=== PATIENT | female | born 1980 | race Caucasian/White ===

== ENCOUNTER 2017-11-27 08:08 | Day surgery (SDC) | payer BC, OTHER ==
[2017-11-25 11:09] VITALS: BMI 27.3
[~2017-11-27 08:08] MED LIST: LACTATED RINGERS 1,000 ML IV SCH
[2017-11-27 08:50] VITALS: RESP 16; TEMP 97.7
[2017-11-27] MEDS ORDERED: LIDOCAINE 1% 20 ML VIAL (10MG/ML) FOR IV START INTRADERMA ONE (08:54)
[2017-11-27] MEDS ORDERED: PROPOFOL 10 MG/ML 20 ML VIAL IV ONE (09:36)
[2017-11-27] MEDS ORDERED: MIDAZOLAM 2 MG/2 ML VIAL ONE (09:36)
[2017-11-27] MEDS ORDERED: fentaNYL (PF) 50 MCG/ML 2 ML AMP ONE (09:36)
--- NOTE | 2017-11-27 09:56 | P.GSHP ---
History of Present Illness H&P Date: 11/27/17 Chief Complaint: GERD This a 36-year-old female for from Dr. Caldera. Patient has complaints of GERD. She presents today for EGD. Past Medical History Past Medical History: No Reported History Additional Past Medical History / Comment(s): "Inflammation of stomach lining" History of Any Multi-Drug Resistant Organisms: None Reported Past Surgical History: Appendectomy, Cholecystectomy, Tubal Ligation Additional Past Surgical History / Comment(s): EGD'S Past Anesthesia/Blood Transfusion Reactions: No Reported Reaction Smoking Status: Former smoker - Past Family History Mother Family Medical History: No Reported History Medications and Allergies Home Medications Medication Instructions Recorded Confirmed Type Cholecalciferol [Vitamin D3] 4,000 unit PO DAILY 01/08/16 11/27/17 History Multivitamins, Thera [Multivitamin] 1 tab PO DAILY 01/08/16 11/27/17 History Calcium Carbonate [Tums] 500 mg PO QID PRN 11/25/17 11/27/17 History Cbd Oil PRN 11/25/17 History Ranitidine HCl [Zantac] 150 mg PO BID 11/25/17 11/27/17 History Allergies Allergy/AdvReac Type Severity Reaction Status Date / Time Penicillins Allergy Severe Anaphylaxis Verified 11/27/17 08:41 Surgical - Exam Vital Signs Temp Pulse Resp BP Pulse Ox 97.7 F 55 L 16 120/75 100 11/27/17 08:46 11/27/17 08:46 11/27/17 08:46 11/27/17 08:46 11/27/17 08:46 - General well developed, no distress - Eyes PERRL - ENT normal pinna - Neck no masses - Respiratory normal expansion - Cardiovascular Rhythm: regular - Abdomen Abdomen: soft, non tender Assessment and Plan Assessment: GERD. We'll perform EGD.
--- NOTE | 2017-11-27 10:06 | P.OP ---
Date of Procedure: 11/27/17 Preoperative Diagnosis: GERD Postoperative Diagnosis: Antral gastritis Hiatal hernia Mild esophagitis Anesthesia: MAC Surgeon: Paco Cueva Pathology: other (Antrum, esophagus) Condition: stable Disposition: PACU Description of Procedure: The patient's placed on the endoscopy table in the lateral position. She received IV sedation. The gastroscope placed oropharynx passed in the esophagus and stomach. Scope was then placed through the pylorus. The first and second portion of the duodenum appeared normal. Scope was then brought back the antrum appeared mildly inflamed. A biopsies performed. Scope was retroflexed and the remainder of the stomach appeared normal. The patient had a sliding hiatal hernia. The GE junction was at 38 cm the esophagus was minimal inflamed a biopsies performed. The proximal esophagus. Normal. Scope withdrawn for patient.
[2017-11-27 10:39] VITALS: BP 124/78; PULSE 53
== END 2017-11-27 10:50 | disposition home or self-care (01) ==
LOC: ORWHC2ENDO 08:08
PROVIDERS: ATTEND Surgery
DX: K29.50 Unspecified chronic gastritis without bleeding (principal); K44.9 Diaphragmatic hernia without obstruction or gangrene; K21.0 Gastro-esophageal reflux disease with esophagitis; Z79.899 Other long term (current) drug therapy; Z88.0 Allergy status to penicillin; Z90.49 Acquired absence of other specified parts of digestive tract; Z98.51 Tubal ligation status; Z87.891 Personal history of nicotine dependence
CPT/HCPCS: 81025; 88305; 43239; J2250; J3010; J2704

== ENCOUNTER → 2017-12-02 | Outpatient (CLI) | payer BC ==
--- NOTE | 2017-12-02 10:20 | FL ---
EXAMINATION: Cervical and Thoracic Esophagram DATE OF EXAM: 12/02/2017 CLINICAL INDICATION: 36-year-old female with GERD, feels like food stuck in the upper chest after eat ing for the last 2 weeks. Total fluoroscopy time: 48 seconds. Total images: 17 COMPARISON: None FINDINGS: The swallowing mechanism is normal and hypopharyngeal anatomy is preserved. The cervical and thoracic portions have a normal course and caliber and normal motility. The mucosa i s normal and no persistent filling defect is encountered. There is a small sliding hiatal hernia demonstrated. Mild gastroesophageal reflux is demonstrated when the patient is supine with Valsalva maneuver. IMPRESSION: 1. Small sliding hiatal hernia with mild gastroesophageal reflux. 2. Otherwise, no specific abnormality seen on esophagram. 3. Note that the patient is concerned about peptic ulcer disease and H. Pylori involving the stomach. This study only evaluated the esophagus and GE junction.
== END | disposition home or self-care (01) ==
LOC: RADFLWHC 07:59
PROVIDERS: ATTEND Surgery
DX: K21.9 Gastro-esophageal reflux disease without esophagitis (principal); K44.9 Diaphragmatic hernia without obstruction or gangrene
CPT/HCPCS: 74220

== ENCOUNTER → 2020-11-30 | Outpatient (CLI) | payer BC ==
[2020-11-30 23:33] LABS: Prolactin 10.4 ng/mL (2.8-29.2); T4, Free (Free Thyroxine) 1.2 ng/dL (0.80-1.80)
[2020-11-30 23:43] LABS: Thyroid Peroxidase Antibodies <28.0 U/mL (0.0-60.0)
== END | disposition home or self-care (01) ==
LOC: LABWHC1 10:53
PROVIDERS: ATTEND Internal Medicine Endocrinology, Diabetes & Metabolism
DX: E03.8 Other specified hypothyroidism (principal); R53.83 Other fatigue
CPT/HCPCS: 36415; 82024; 82533; 82607; 84146; 84439; 84443; 86376